=== PATIENT | female | born 1990 | race Caucasian/White ===

== ENCOUNTER 2023-01-09 20:29 | Emergency (ER) | payer OTHER ==
[~2023-01-09] VITALS: Ht 167.6 cm; Wt 63.5 kg
[~2023-01-09 20:29] MED LIST: ASPI81TA31 PO; DOXY100T2 PO; FOLI1TAB27 PO; LISI20TA30 PO; METO50TA16 PO; METR-147 PO; THIA50TA10 PO
--- NOTE | 2023-01-09 20:45 | NUR ---
Pt provided with urine sample, sent to lab.
--- NOTE | 2023-01-09 21:00 | NUR ---
URINE COLLECTED /SENT TO LAB.
[2023-01-09 21:11] LABS: *BILIRUBIN,URIN NEGATIVE (NEGATIVE); *BLOOD, URINE NEGATIVE (NEGATIVE); *CLARITY,URINE CLEAR (CLEAR); *COLOR,URINE YELLOW (YELLOW); *KETONES,URINE NEGATIVE (NEGATIVE); *UROBILINOGEN,URINE 0.2 E.U./dl (NORMAL); LEUKOCYTE ESTERASE ,URINE NEGATIVE (NEGATIVE); NITRITE, URINE NEGATIVE (NEGATIVE); PH,URINE 6.5 (5.0-8.0); UGLUCOSE NEGATIVE (NEGATIVE)
--- NOTE | 2023-01-09 21:25 | NUR ---
AT BEDSIDE FOR EVAL. PELIC EXAM PREFORMED, BY DR Pardeep GALLOWAY. WET MOUNT COLLECTED WITH [employer] AT BEDSIDE.
[2023-01-09 21:47] LABS: *URINE HCG, QUAL NEGATIVE (NEGATIVE)
[2023-01-09 22:21] VITALS: BP 112/71; O2SAT 98
--- NOTE | 2023-01-09 22:21 | NUR ---
Patient discharged to home in stable condition. Written and verbal after care instructions given. Patient verbalizes understanding of instructions. Stressed follow up or return to ER for worsening s/s.
[2023-01-12 04:06] LABS: *TRIC.VAG. NAA Negative (Negative)
[2023-01-12 11:07] LABS: *GC NAA Negative (Negative)
== END 2023-01-09 22:22 | disposition home or self-care (01) ==
LOC: ER 20:30
DX: N89.8 Other specified noninflammatory disorders of vagina (principal); Z79.82 Long term (current) use of aspirin; Z79.2 Long term (current) use of antibiotics; Z79.899 Other long term (current) drug therapy
CPT/HCPCS: 84703; 87210; 87491; A4663

== ENCOUNTER 2023-06-25 01:23 | Emergency (ER) | payer OTHER ==
[~2023-06-25] VITALS: Ht 167.6 cm; Wt 61.2 kg
[2023-06-25 02:11] LABS: BASOPHILS # (AUTO) 0.1 K/UL (0.0-0.2); BASOPHILS % (AUTO) 0.9 % (0.0-2.0); EOSINOPHILS # (AUTO) 0.4 K/uL (0.0-0.7); EOSINOPHILS % (AUTO) 4.8 % (0.0-7.0); HEMATOCRIT 42.4 % (31.2-41.9); HEMOGLOBIN 14.5 g/dL (10.9-14.3); LYMPHOCYTES # (AUTO) 2.8 K/uL (0.8-4.8); LYMPHOCYTES % (AUTO) 37.3 % (20.5-51.5); MEAN CORPUSCULAR HEMOGLOBIN 31.8 uug (24.7-32.8); MEAN CORPUSCULAR HGB CONC 34 g/dL (32.3-35.6); MONOCYTES # (AUTO) 0.4 K/uL (0.1-1.30); MONOCYTES % (AUTO) 5.9 % (0.0-11.0); NEUTROPHILS # (AUTO) 3.8 K/uL (1.8-8.9); NEUTROPHILS % (AUTO) 51.1 % (38.5-71.5); PLATELET COUNT (AUTO) 230 K/uL (179-408); RED BLOOD CELL COUNT(AUTO) 4.55 MIL/uL (3.63-4.92); RED CELL DISTRIBUTION WIDTH 12.4 % (12.3-17.7); WHITE BLOOD COUNT (AUTO) 7.4 K/uL (3.8-11.8)
[2023-06-25 02:28] LABS: CALCIUM 8.6 mg/dL (8.5-10.1); CREATININE 0.8 mg/dL (0.6-1.3); POTASSIUM 3.6 mmol/L (3.5-5.1)
[2023-06-25 02:30] LABS: DIFFERENTIAL COMMENT 1
[2023-06-25 02:55] VITALS: BP 114/73; TEMP 209.8; O2SAT 98
== END 2023-06-25 02:56 | disposition home or self-care (01) ==
LOC: ER 01:26
DX: R05.9 Cough, unspecified (principal); R06.02 Shortness of breath; Z79.82 Long term (current) use of aspirin; Z79.899 Other long term (current) drug therapy; Z20.822 Contact with and (suspected) exposure to COVID-19
CPT/HCPCS: 36415; 71045; 83735; 85025; A4606; A4663

== ENCOUNTER 2023-11-21 01:50 | Emergency (ER) | payer OTHER ==
[~2023-11-21] VITALS: Ht 167.6 cm; Wt 68.0 kg
[2023-11-21 03:02] LABS: *URINE HCG, QUAL NEGATIVE (NEGATIVE)
[2023-11-21] MEDS ORDERED: NAPR-1009 PO (03:47)
[2023-11-21] MEDS ORDERED: CYCL5TAB PO (03:47)
[2023-11-21] MEDS ORDERED: KETOROLAC TROMETHAMINE 30 MG INJ ONE (03:52)
[2023-11-21] MEDS: KETOROLAC TROMETHAMINE 30 MG INJ IM ONE (04:00)
[2023-11-21 04:25] VITALS: BP 122/94; O2SAT 97
== END 2023-11-21 04:10 | disposition home or self-care (01) ==
LOC: ER 01:55
DX: S33.5XXA Sprain of ligaments of lumbar spine, initial encounter (principal); M54.50 Low back pain, unspecified; R10.2 Pelvic and perineal pain; M25.561 Pain in right knee; Z79.899 Other long term (current) drug therapy; V49.88XA Car occupant (driver) (passenger) injured in other specified transport accidents, initial encounter; Y93.89 Activity, other specified; Y92.89 Other specified places as the place of occurrence of the external cause; Y99.8 Other external cause status
CPT/HCPCS: 72110; 84703; A4606; A4663; J1885

== ENCOUNTER 2025-01-28 22:49 | Emergency (ER) | payer MEDICAID, OTHER ==
[~2025-01-28] VITALS: Ht 167.6 cm; Wt 65.8 kg
[~2025-01-28 22:49] MED LIST changes: +CYCL5TAB PO; +NAPR-1009 PO
[2025-01-28 23:21] LABS: *URINE HCG, QUAL NEGATIVE (NEGATIVE)
[2025-01-29 02:13] VITALS: BP 110/76; TEMP 98; O2SAT 100
[2025-01-30 21:07] LABS: *CHLAMYDIA NAA Negative (Negative); *GC NAA Negative (Negative); *TRIC.VAG. NAA Negative (Negative)
== END 2025-01-29 02:13 | disposition home or self-care (01) ==
LOC: ER 23:03
DX: Z00.00 Encounter for general adult medical examination without abnormal findings (principal); Z79.82 Long term (current) use of aspirin; Z79.899 Other long term (current) drug therapy; Z91.040 Latex allergy status
CPT/HCPCS: 76856; 84703; 87210; 87491; A4606; A4663